=== PATIENT | male | born 1950 | race Caucasian/White ===

== ENCOUNTER 2021-12-15 16:05 | Inpatient (IN) | payer MEDICARE, OTHER ==
[~2021-12-15] VITALS: Ht 180.3 cm; Wt 92.9 kg
[2021-12-15 13:50] VITALS: BP 147/92
[2021-12-15] MEDS ORDERED: HEPARIN for IV BOLUS 10,000 UNIT/10 ML VIAL. IV PRN (16:45)
[2021-12-15] MEDS ORDERED: HEPARIN 25,000UTS/250ML PREMIX 250 ML IV PRN (16:45)
[2021-12-15 19:00] VITALS: BP 142/81
[2021-12-15 22:35] VITALS: BP 140/84
[2021-12-16 02:17] VITALS: BP 141/85
[2021-12-16 07:00] VITALS: BP 140/90
[2021-12-16 07:39] LABS: HEMATOCRIT 44.7 % (39.0-53.0); RED BLOOD COUNT 5.08 x10^6/uL (4.30-5.70); RED CELL DISTRIBUTION WIDTH 13.5 % (11.5-14.5); WHITE BLOOD COUNT 5.3 x10^3/uL (4.0-11.0)
[2021-12-16 09:40] LABS: CHOLESTEROL/HDL RATIO 4.4
[2021-12-16] MEDS ORDERED: IODIXANOL 320 MG/ML 100 ML VIAL. ONE ×2 (09:47→10:37)
[2021-12-16] MEDS ORDERED: LIDOCAINE 1% PF 2 ML VIAL. ONE (09:47)
[2021-12-16] MEDS ORDERED: NITROGLYCERIN 200 MCG/2 ML SYRINGE FOR CATH/VASC LAB. ONE (09:49)
[2021-12-16] MEDS ORDERED: VERAPAMIL 5 MG/2 ML VIAL. ONE (09:49)
[2021-12-16] MEDS ORDERED: MIDAZOLAM HCL/PF 2 MG/2 ML VIAL. ONE (09:49)
[2021-12-16] MEDS ORDERED: HEPARIN for IV BOLUS 10,000 UNIT/10 ML VIAL. ONE (09:49)
[2021-12-16] MEDS ORDERED: fentaNYL PF VIAL 100 MCG/2 ML VIAL ONE (09:49)
--- NOTE | 2021-12-16 09:50 | EKG ---
[facility] [address] [place] [address] Test Date: 2021-12-16 Test Time: 09:34:41 Pat Name: NICHOLE BAIRD Department: Room: 646 1 Gender: M [employer] Supervisor: MARITZA : 1950 Requested By: SUSANNAH DE Order Number: [id number] Reading MD: Silvio Hayden Measurements Intervals Hallie Rate: 74 P: -36 GA: 114 QRS: -40 QRSD: 108 T: 159 QT: 400 QTc: 449 Interpretive Statements SINUS RHYTHM LEFT ANTERIOR FASCICULAR BLOCK LVH WITH REPOLARIZATION ABNORMALITY QRS(T) CONTOUR ABNORMALITY CONSIDER ANTEROSEPTAL MYOCARDIAL DAMAGE ABNORMAL ECG RI6.02 No previous ECG available for comparison Electronically Signed On 12-17-2021 18:41:19 KNITTING MACHINE OPERATOR HELPER by Silvio Hayden
--- NOTE | 2021-12-16 10:21 | PDOC ---
MODERATE SEDATION ASSESSMENT RISKS/ALTERNATIVES Risks/Alternatives Risks and alternatives of this type of sedation and procedure discussed with: RISK/ALTERNATIVES: Patient H & P ON CHART H & P H & P on chart and reviewed for co-morbid conditions and appropriate labs. H&P ON CHART: Yes STATUS PREG STATUS ASSESSED: N/A MEDS/ALLERGIES REVIEWED Meds/Allergies Reviewed Medications and Allergies including time and route of recently administered narcotics and sedatives. MEDS/ALLERGIES REVIEWED: Yes ASA RATING ASA RATING: II AIRWAY ASSESSMENT Airway Assessment Airway patency, oral function limitations, presence of caps, crowns, dentures, partials, and ability to extend neck assessed. AIRWAY ASSESSMENT: Yes MALLAMPATI SCORE MALLAMPATI SCORE: II PRE-SEDATION ASSESSMENT PRE-SEDATION ASSESSMENT: Yes VON NAIR MD Dec 16, 2021 10:21
--- NOTE | 2021-12-16 10:31 | PDOC2 ---
SUSANNAH DE CLASSIFICATION OFFICER 12/16/21 1030: CARDIAC CONSULT DATE OF CONSULT Date of Consult DATE: 12/16/21 TIME: 10:25 REASON FOR CONSULT Reason for Consult: NSTEMI REFERRING PHYSICIAN Referring Physician: Des SOURCE Source: Chart review, Patient HISTORY OF PRESENT ILLNESS HISTORY OF PRESENT ILLNESS This is a pleasant 71 yo male admitted for complains of chest pain. Reports this started yesterday morning as tightness 4/10 but continued on so he went to ED. He did not receive NTG but took ASA. No SOA no n/v. No recent falls or injury. He is a very active oscar running about 6 times a week and so far no symptoms with his running the day before. No recreational drug use and takes lipitor. No DM, CAD, VTE in the past. No tobacco use PAST MEDICAL HISTORY Cardiovascular: Hyperlipidemia GI: GERD PAST SURGICAL HISTORY Past Surgical History: Cataract Removal, Tonsillectomy FAMILY HISTORY Family History: Coronary Artery Disease (mother) SOCIAL HISTORY Smoke: No ALCOHOL: rare Drugs: None Lives: with Family ALLERGIES ALLERGIES: Coded Allergies: No Known Drug Allergies (Unverified , 12/15/21) ROS Review of System 14 point ROS evaluated with pertinent positives noted per HPI PHYSICAL EXAM General: Alert, Oriented X3, Cooperative, No acute distress HEENT: Atraumatic, Mucous membr. moist/pink Lungs: Clear to auscultation, Normal air movement Heart: Regular rate (SR), Normal S1, Normal S2, No murmurs Abdomen: Soft, No tenderness Extremities: No cyanosis, No edema Skin: No breakdown, No significant lesion Neuro: Normal speech, Sensation intact Psych/Mental Status: Mental status NL, Mood NL MUSCULOSKELETAL: Osteoarthritic changes both hands VITALS/I&O VITALS/I&O: Vital Signs Date Time Temp Pulse Resp B/P (MAP) Pulse Ox O2 Delivery O2 Flow Rate FiO2 12/16/21 07:00 98.4 75 18 140/90 (107) 94 Room Air 98.4 I & O 12/15/21 12/15/21 12/16/21 15:00 23:00 07:00 Intake Total 200 ml Output Total 1500 ml Balance 200 ml -1500 ml LABS Lab: Laboratory Tests Test 12/15/21 20:15 12/16/21 06:10 Heparin Anti-Xa Act, Unfractionated 0.23 IU/mL (0.30-0.70) L 0.29 IU/mL (0.30-0.70) L White Blood Count 5.3 x10^3/uL (4.0-11.0) Red Blood Count 5.08 x10^6/uL (4.30-5.70) Hemoglobin 15.0 g/dL (13.0-17.5) Hematocrit 44.7 % (39.0-53.0) Mean Corpuscular Volume 88 fL (79-100) Mean Corpuscular Hemoglobin 30 pg (25-35) Mean Corpuscular Hemoglobin Concent 34 g/dL (31-37) Red Cell Distribution Width 13.5 % (11.5-14.5) Platelet Count 102 x10^3/uL (140-400) L Troponin I High Sensitivity 6145 ng/L (4-75) H Triglycerides Level 160 mg/dL (0-150) H Cholesterol Level 151 mg/dL (0-200) LDL Cholesterol, Calculated 85 mg/dL (0-100) VLDL Cholesterol, Calculated 32 mg/dL (0-40) Non-HDL Cholesterol Calculated 117 mg/dL (0-129) HDL Cholesterol 34 mg/dL (40-60) L Cholesterol/HDL Ratio 4.4 Thyroid Stimulating Hormone (TSH) 1.928 uIU/mL (0.358-3.74) Laboratory Tests 12/16/21 06:10 ASSESSMENT/PLAN ASSESSMENT/PLAN 1. NSTEMI/ACS 2. HLP Recommendations 1. LHC with possible PCI, risks and benefits discussed and agreeable to proceed 2. TTE, TSH, FLP 3. ASA, on heparin drip VON NAIR MD 12/16/21 1330: CARDIAC CONSULT ASSESSMENT/PLAN ASSESSMENT/PLAN Patient seen and examined. Agree with SHAFT REPAIRER's assessment and plan. Plan for cardiac catheterization and possible angioplasty to further evaluate patient's non-STEMI. Check 2D echo to assess LV systolic function. Continue heparin infusion per protocol. Thank you for your consultation. SUSANNAH DE APRN Dec 16, 2021 10:30 VON NAIR MD Dec 16, 2021 13:30
[2021-12-16] MEDS ORDERED: HEPARIN for IV BOLUS 10,000 UNIT/10 ML VIAL. IART ONE (10:45)
[2021-12-16] MEDS ORDERED: MIDAZOLAM HCL/PF 2 MG/2 ML VIAL. IV ONE (10:45)
[2021-12-16] MEDS ORDERED: VERAPAMIL 5 MG/2 ML VIAL. IART ONE (10:45)
[2021-12-16] MEDS ORDERED: NITROGLYCERIN 200 MCG/2 ML SYRINGE FOR CATH/VASC LAB. IART ONE (10:45)
[2021-12-16] MEDS ORDERED: LIDOCAINE 1% PF 2 ML VIAL. INJ ONE (10:45)
[2021-12-16] MEDS ORDERED: IODIXANOL 320 MG/ML 100 ML VIAL. IART ONE (10:45)
[2021-12-16] MEDS ORDERED: fentaNYL PF VIAL 100 MCG/2 ML VIAL IV ONE (10:45)
[2021-12-16] MEDS ORDERED: ASPIRIN ENTERIC COATED 81 MG TABLET.DR. PO SCH (11:00)
[2021-12-16] MEDS ORDERED: ANTI-COAG MONITOR BY PHARMACY. MC PRN (11:00)
[2021-12-16 11:02] VITALS: BP 129/75
[2021-12-16] MEDS ORDERED: PANTOPRAZOLE 40 MG TABLET.DR. PO SCH (13:00)
--- NOTE | 2021-12-16 13:10 | CARD ---
MR#: [id number] Date of Study: 12/16/2021 Ordering Physician: SUSANNAH DE, Referring Physician: SUSANNAH DE Tech: RT Endy(R) APPROVED REPORT Technologist: Nahomy Traylor RT(R) Nurse: Shwetha Holbrook RN Procedure(s) performed: Left heart catheterization, selective coronary angiography and left ventricul ography via right transradial approach MODERATE SEDATION TIME: 33 MINUTES FLUORO TIME: 7.4 MIN DOSE: 91.7 GYCM2 CONTRAST: 133CC VISI INDICATION The indication(s) include : Non-STEMI. CS Clinical Frailty Scale [facility] Clinical Frailty Scale: Managing Well Heart Failure Heart Failure: No CASE TECHNIQUE IV conscious sedation was used throughout procedure with appropriate monitoring and was performed in the presence of a registered nurse who was an independent trained observer other than the physician p erforming the procedure. During this case, Fluoroscopy and low osmolar contrast were used for imaging . Specimen(s) Removed: No Estimated Blood loss: 15 cc's. PROCEDURE NARRATIVE After explaining the risks, benefits and alternative options, informed consent was obtained from maria g ent. Patient was brought to the cardiac Crown Blocker and right wrist was prepped and draped in the usual fashion after confirming a positive modified Marc's test. Arterial access was obtained in the rig t radial artery and a 6 Amharic sheath was inserted. 6 Amharic Torey and 6 Amharic JL 3.5 catheters we re used to perform selective angiography of the right and left coronary arteries. 6 Amharic pigtail c atheter was used to perform left ventriculography. Patient tolerated the procedure well. Hemostasis was achieved using TR band. There were no immediate complications. The following findings were not ed. FINDINGS 1. Hemodynamics: Left ventricular end-diastolic pressure of 17 mmHg. No pullback gradient across th e aortic valve. 2. Left ventriculography: Apical wall hypokinesis with ejection fraction estimated at 50%. No signi ficant mitral regurgitation seen. 3. Coronary angiography: a. The left main coronary artery arose from the left sinus of Valsalva, gave rise to the left anteri or descending and left circumflex arteries and did not show any significant stenosis. b. The left anterior descending artery showed 99% stenosis in the midsegment. There was a diagonal branch that arose just prior to this lesion, was a medium caliber vessel and showed 90% proximal segm ent stenosis. c. The left circumflex artery showed 95 to 99% stenosis in the midsegment. d. The right coronary artery was a large and dominant vessel arising from the right sinus of Valsalv a that showed 90% stenosis in a medium caliber posterolateral branch. Conclusion 1. Severe three-vessel coronary artery disease 2. Apical wall hypokinesis with ejection fraction estimated at 50% Recommendations Cardiothoracic surgery team referral for possible coronary artery bypass surgery Signed by : Silvio Hayden, Electronically Approved : 12/16/2021 13:09:44
--- NOTE | 2021-12-16 13:36 | PN ---
DATE: 12/16/2021 SUBJECTIVE: The patient is resting, slightly propped up in bed, in no apparent respiratory distress. He apparently underwent cardiac catheterization, which showed that he has triple-vessel disease and the cardiothoracic surgeon at [facility] was contacted to review the films and to make a decision regarding coronary artery bypass graft surgery. When I saw him this morning, he was resting, slightly propped up in bed, in no apparent respiratory distress. On questioning him, he denied any chest pain. Denied any shortness of breath, nausea, vomiting or diaphoresis. PHYSICAL EXAMINATION: GENERAL: When I examined him this afternoon, he looked pale, not jaundiced or cyanosed. No lymphadenopathy, no thyromegaly, no jugular venous distention. No lower limb edema. VITAL SIGNS: His heart rate was 69, blood pressure was 140/90, temperature 98.4, respiratory rate was 16 and oxygen saturation was 96% on room air. HEAD, EYES, EARS, NOSE AND THROAT: Normocephalic, atraumatic. NECK: Supple. HEART: Showed normal first and second heart sounds. No gallop or murmur. CHEST: Clear to auscultation. No crepitation or rhonchi. ABDOMEN: Distended, soft, nontender. NEUROLOGIC: He was grossly intact. LABORATORY DATA: His lab work this morning showed a white cell count of 5300, hemoglobin 15, hematocrit 45, MCV 88 and platelet count of 103,000. His serum triglycerides 160, total cholesterol 151, LDL cholesterol 85, VLDL was 32, HDL 34 and the ratio was 4.4. TSH was 1.928 and his troponin I high sensitivity was 6145. ASSESSMENT: In summary, this is a 71-year-old male patient who was transferred from [facility] Emergency Room with non-ST segment elevation myocardial infarction. Cardiac catheterization showed that he has triple-vessel disease. Other medical problems include benign prostatic hypertrophy, gastroesophageal reflux disease and hyperlipidemia. PLAN: To continue with the heparin drip, continue with aspirin. I will continue his atorvastatin 10 mg at bedtime, Nexium 20 mg and tamsulosin 0.4 mg at bedtime. Once he is accepted, he will be transferred to [facility] for definitive surgical treatment. EZEKIEL/BLAIR DR: Tunde TID: [id number]
[2021-12-16 14:56] VITALS: BP 159/95
--- NOTE | 2021-12-16 14:56 | NUR ---
SS following for discharge planning. SS reviewed pt chart and discussed with pt RN. Pt is from home with spouse and is currently on room air. Cardiology following. Pt had heart cath today. SS will continue to follow for discharge planning.
--- NOTE | 2021-12-16 15:20 | HP ---
DATE OF SERVICE: 12/16/2021 ADMIT DATE: 12/15/2021 HISTORY OF PRESENT ILLNESS: The patient is a 71-year-old male patient who presented to the Emergency Room of [facility] with complaint of the chest pain that started about 2 hours prior to arrival to the Emergency Room. He was sitting at his desk, reading papers and he started to have central chest heaviness. He described it as a pressure and rated about 4/10. There is currently no radiation when he arrived. Denied any shortness of breath or diaphoresis, no significant cardiac history. The patient takes medication for his prostate and cholesterol, has no other complaint at this time. He was extensively investigated in the Emergency Room and has had lab work and imaging studies as well as EKG. His EKG showed that the patient was in sinus rhythm at a rate of 81 beats per minute, leftward axis, no ST elevation or depression, has multiple bigeminies and another one showed that he was in sinus rhythm at a rate of 76, leftward axis, no ST segment elevation and the bigeminies have resolved. Had a chest x-ray done, which showed the cardiomediastinal silhouette is normal, lungs are clear. There is no pneumothorax, no pleural effusion is appreciated. No acute bony abnormality. He had also lab work, which showed his CBC was within normal range. His chemistry was normal, however, his first troponin I was 23, the second was 386 and third was 2104. The patient was started on heparin and was transferred to [facility] for further evaluation and treatment. PAST MEDICAL HISTORY: Significant for hyperlipidemia, gastroesophageal reflux disease, and benign prostatic hypertrophy. PAST SURGICAL HISTORY: Significant for bilateral cataract extraction and tonsillectomy. FAMILY HISTORY: Positive for coronary artery disease in his mother. SOCIAL HISTORY: He lives with his family. He does not smoke, drink alcohol or use recreational drugs. ALLERGIES: He has no known drug allergies. MEDICATIONS: He is currently on following medications: . REVIEW OF SYSTEMS: As per history of present illness. PHYSICAL EXAMINATION: GENERAL: On arrival to the Emergency Room, the patient looked well and was clearly in no apparent respiratory distress. There is no pallor, jaundice, cyanosis or thyromegaly. No jugular venous distention. No lower limb edema. VITAL SIGNS: His heart rate was 67, blood pressure was 141/98, temperature was 98, respiratory rate was 16, and oxygen saturation was 98% on room air. HEAD, EYES, EARS, NOSE, AND THROAT: Normocephalic, atraumatic. NECK: Supple. HEART: Showed normal first and second heart sounds. No gallop, rub or murmur. CHEST: Clear to auscultation, no crepitation or rhonchi. ABDOMEN: Distended, soft, nontender. NEUROLOGIC: He was grossly intact. LABORATORY DATA: Showed a white cell count of 5000, hemoglobin 16, hematocrit 46, MCV 91, and platelet count of 113,000. His chemistry showed a serum sodium of 140, potassium 4.2, chloride 105, bicarbonate 31, anion gap of 4, BUN 22, creatinine 1.2, estimated GFR was 59 mL per minute, his glucose was 94, calcium was 8.8. Total bilirubin, AST, ALT, alkaline phosphatase were normal. Troponin I high sensitivity showed a steady rise of 23, 386 and 2104. Total protein 6.9, albumin was 4.3. EKG showed no evidence of ST segment elevation or depression, did show multiple bigeminy that has resolved spontaneously. ASSESSMENT AND PLAN: The patient was transferred to [facility] with non-ST segment elevation myocardial infarction. His other medical problems include hyperlipidemia, gastroesophageal reflux disease, and benign prostatic hypertrophy. He was started on heparin and then aspirin and we have consulted the Cardiology team for further evaluation and treatment. EZEKIEL/DIEGO/WW [facility] DR: Tunde TID: [id number]
[2021-12-16 19:00] VITALS: BP 154/90
[2021-12-16] MEDS: TAMSULOSIN 0.4 MG CAP.ER.24H. PO SCH ×2 (21:00→21:38)
[2021-12-16] MEDS: ATORVASTATIN CALCIUM 40 MG TABLET. PO SCH ×2 (21:00→21:38)
[2021-12-16 22:17] VITALS: BP 146/82
--- NOTE | 2021-12-16 23:20 | NUR ---
Pt was transferred to [facility] via ambulance. POC was discussed with pt and pt v/u of teachings. Pt was transferred with a heparin gtt running. R wrist cath site was C, D, I, and soft upon transfer. Report was called to Kori TENA at [facility].
--- NOTE | 2021-12-18 16:49 | CARD ---
MR#: [id number] Date of Study: 12/16/2021 Ordering Physician: SUSANNAH DE, Referring Physician: SUSANNAH DE Tech: Shantanu Ruvalcaba [facility] APPROVED REPORT EXAM: Two-dimensional and M-mode echocardiogram with Doppler and color Doppler. Other Information Quality : AverageHR: 73bpm Rhythm : NSR INDICATION NSTEMI RISK FACTORS Hyperlipidemia Family History 2D DIMENSIONS Left Atrium(2D)4.2 (1.6-4.0cm)IVSd1.5 (0.7-1.1cm) Aortic Root(2D)3.3 (2.0-3.7cm)LVDd4.1 (3.9-5.9cm) LVOT Diameter2.2 (1.8-2.4cm)PWd1.5 (0.7-1.1cm) LA Pslkmo39 (18-58mL)LVDs2.3 (2.5-4.0cm) FS (%) 42.7 %SV54.8 ml Aortic Valve AoV Peak Robert.170.9cm/sAoV VTI33.5cm AO Peak GR.11.7mmHgLVOT VTI 13.97cm AO Mean GR.6mmHgAVA (VTI)1.50cm2 Mitral Valve MV E Nxyeajuk75.6cm/sMV E Peak Gr.3mmHg MV DECEL CQDF800opHV A Txbqedfv91.8cm/s MV E Mean Gr.1mmHgE/A Ratio0.7 TDI Lateral E' P. V7.08cm/sMedial E' P. V5.47cm/s E/Lateral E'7.9E/Medial E'10.2 Pulmonary Valve PV Peak Gdecddju907.4cm/s Tricuspid Valve TR P. Kgvtqfbf113bc/sTR Peak Gr.17mmHg LEFT VENTRICLE The left ventricle is normal size. There is mild concentric left ventricular hypertrophy. The left ve ntricular systolic function is mildly decreased. The Ejection Fraction is 40-45%. There is mild apic al hypokinesis. No left ventricle thrombus noted on this study. There is no ventricular septal defect visualized. There is no left ventricular aneurysm. There is no mass noted in the left ventricle. RIGHT VENTRICLE The right ventricle is normal size. There is normal right ventricular wall thickness. The right ventr icular systolic function is normal. ATRIA The left atrium is mildly dilated. The right atrium size is normal. The interatrial septum is intact with no evidence for an atrial septal defect or patent foramen ovale as noted on 2-D or Doppler imagi ng. AORTIC VALVE The aortic valve is calcified but opens well. Doppler and Color Flow revealed no significant aortic r egurgitation. There is no significant aortic valvular stenosis. Calculated aortic valve area is 1.5 c m2 with maximum pressure gradient of 12 mmHg and mean pressure gradient of 6 mmHg. There is no aortic valvular vegetation. MITRAL VALVE The mitral valve is thickened but opens well. There is no evidence of mitral valve prolapse. There is no mitral valve stenosis. Doppler and Color-flow revealed trace to mild mitral regurgitation. TRICUSPID VALVE The tricuspid valve is normal in structure and function. Doppler and Color Flow revealed mild tricusp id regurgitation. The PA pressure was estimated at 30 mmHg. There is no tricuspid valve prolapse or v egetation. There is no tricuspid valve stenosis. PULMONIC VALVE The pulmonary valve is normal in structure and function. Doppler and Color Flow revealed no pulmonic valvular regurgitation. There is no pulmonic valvular stenosis. GREAT VESSELS The aortic root is normal in size. The ascending aorta is normal in size. The pulmonary artery is nor mal. The IVC is normal in size and collapses >50% with inspiration. PERICARDIAL EFFUSION There is no pleural effusion. There is no evidence of significant pericardial effusion. Critical Notification Critical Value: No <Conclusion> The left ventricle is normal size. The left ventricular systolic function is mildly decreased. The Ejection Fraction is 40-45%. There is mild apical hypokinesis. There is mild concentric left ventricular hypertrophy. Doppler and Color Flow revealed no significant aortic regurgitation. There is no significant aortic valvular stenosis. Doppler and Color-flow revealed trace to mild mitral regurgitation. Doppler and Color Flow revealed mild tricuspid regurgitation. The PA pressure was estimated at 30 mmHg. Signed by : Robin Radford MD Electronically Approved : 12/18/2021 16:48:51
== END 2021-12-16 23:30 | disposition short-term general hospital (02) | DRG 282 ==
LOC: 6 SOUTH 16:05
PROVIDERS: ADMIT Internal Medicine; ATTEND Internal Medicine
PROC: 4A023N7 Measurement of Cardiac Sampling and Pressure, Left Heart, Percutaneous Approach (ICD-10-PCS; principal; 2021-12-16)
PROC: B215YZZ Fluoroscopy of Left Heart using Other Contrast (ICD-10-PCS; 2021-12-16)
PROC: B211YZZ Fluoroscopy of Multiple Coronary Arteries using Other Contrast (ICD-10-PCS; 2021-12-16)
DX: I21.4 Non-ST elevation (NSTEMI) myocardial infarction (principal); K21.9 Gastro-esophageal reflux disease without esophagitis; N40.0 Benign prostatic hyperplasia without lower urinary tract symptoms; Z82.49 Family history of ischemic heart disease and other diseases of the circulatory system; Z95.1 Presence of aortocoronary bypass graft; Z98.41 Cataract extraction status, right eye; Z98.42 Cataract extraction status, left eye; E78.5 Hyperlipidemia, unspecified
CPT/HCPCS: 36415; 80061; 84443; 84484; 85027; 85520; 93005; 93306; 93458; 99152; 99153; C1769; C1894; J1644; J2250; J3010; J3490; Q9967; C8929; G0378